=== PATIENT | female | born 1995 | race Caucasian/White ===

== ENCOUNTER → 2019-07-09 08:45 | Outpatient (BNVA) | payer BC, SELFPAY | PROVIDERS: Visit Provider Psychiatry & Neurology Psychiatry | DX: F33.1 Major depressive disorder, recurrent, moderate (principal); F41.1 Generalized anxiety disorder; F43.9 Reaction to severe stress, unspecified | CPT/HCPCS: 99204 ==

== ENCOUNTER → 2019-07-28 08:41 | Outpatient (BNVA) | payer BC, SELFPAY | PROVIDERS: Visit Provider Counselor Professional | DX: F41.1 Generalized anxiety disorder (principal) | CPT/HCPCS: 90834 ==

== ENCOUNTER → 2019-08-18 09:40 | Outpatient (BNVA) | payer BC, SELFPAY | PROVIDERS: Visit Provider Psychiatry & Neurology Psychiatry | DX: F43.9 Reaction to severe stress, unspecified (principal); F41.1 Generalized anxiety disorder; F33.1 Major depressive disorder, recurrent, moderate | CPT/HCPCS: 99213 ==

== ENCOUNTER → 2019-09-14 08:03 | Outpatient (BNVA) | payer BC, SELFPAY | PROVIDERS: Visit Provider Psychiatry & Neurology Psychiatry | DX: F43.9 Reaction to severe stress, unspecified (principal); F41.1 Generalized anxiety disorder; F33.1 Major depressive disorder, recurrent, moderate | CPT/HCPCS: 99213 ==

== ENCOUNTER → 2019-12-06 11:19 | Outpatient (BNVA) | payer BC, SELFPAY | PROVIDERS: Visit Provider Nurse Practitioner Family | DX: Z34.90 Encounter for supervision of normal pregnancy, unspecified, unspecified trimester (principal); Z3A.01 Less than 8 weeks gestation of pregnancy | CPT/HCPCS: 81025 ==

== ENCOUNTER 2019-12-07 10:21 | Outpatient (CLI) | payer BC, SELFPAY | END 2019-12-07 10:22 | disposition home or self-care (01) | LOC: LAB 10:29 | PROVIDERS: Family Provider Family Medicine; PCP Family Medicine; Referring Provider Obstetrics & Gynecology Reproductive Endocrinology; Visit Provider Family Medicine | DX: Z32.00 Encounter for pregnancy test, result unknown (principal) | CPT/HCPCS: 84702 ==

== ENCOUNTER 2019-12-09 08:37 | Outpatient (CLI) | payer BC, SELFPAY | END 2019-12-09 08:38 | disposition home or self-care (01) | PROVIDERS: PCP Family Medicine; Visit Provider Obstetrics & Gynecology Reproductive Endocrinology | DX: Z32.01 Encounter for pregnancy test, result positive (principal) | CPT/HCPCS: 84702 ==

== ENCOUNTER → 2020-03-01 14:55 | Outpatient (BNVA) | payer BC, MEDICAID, SELFPAY | PROVIDERS: PCP Family Medicine; Visit Provider Nurse Practitioner | DX: Z34.90 Encounter for supervision of normal pregnancy, unspecified, unspecified trimester (principal); B34.9 Viral infection, unspecified | CPT/HCPCS: 81000; 87635 ==

== ENCOUNTER 2020-03-31 10:43 | Outpatient (CLI) | payer BC, MEDICAID, SELFPAY ==
--- NOTE | 2020-03-31 10:55 | US_ITS ---
WS: [id number] OBSTETRICAL ULTRASOUND COMPLETE HISTORY: ANATOMY COMPARISON: None available. Single intrauterine gestation in breech presentation. Cervix is Closed and normal length. Cervical length is 4.6 cm. Normal amount of amniotic fluid surrounds the fetus. Placenta: Anterior, no previa or abruption. Placenta grade 1 Heart: 133 BPM. 4 chambers are identified. Normal situs. Outflow chambers are not identified. Anatomy: Intracranial structures and spine are normal. kidneys, stomach and urinary bladd er are unremarkable. Abdominal wall, three-vessel cord and cord insertion site are normal. 4 extremities are present. profile: Limited. Gender: Female. measurements: BPD = 4.9 cm = 20w5d HC = 18.0 cm = 20w3d AC = 15.5 cm = 20w4d FL = 3.3 cm = 20w2d EFW: 357 g. Biometry is internally concordant. AGA by ultrasound: 20w3d PAULY by ultrasound: 08/15/2020 US/US OB >= 14 weeks fetus [id number] IMPRESSION: 1. Single intrauterine gestation of 20w3d with an PAULY of 08/15/2020. 2. RIGHT and LEFT outflow chambers are poorly visualized. Limited visualizatio n of the profile. The remaining anatomy is negative.
== END 2020-03-31 10:44 | disposition home or self-care (01) ==
LOC: RAD 10:48
PROVIDERS: PCP Family Medicine; Visit Provider Family Medicine
DX: Z36.89 Encounter for other specified antenatal screening (principal); Z3A.20 20 weeks gestation of pregnancy
CPT/HCPCS: 76805

== ENCOUNTER 2020-04-12 13:14 | Outpatient (CLI) | payer BC, MEDICAID, SELFPAY ==
--- NOTE | 2020-04-12 13:23 | US_ITS ---
WS: [id number] [place] [id number] REASON FOR EXAM: SUPERVISION NORMAL FINDINGS: Follow-up ultrasound to reevaluate facial profile and right and left ventricular outflow tract. A normal facial profile is identified without evidence of cleft lip or palate. Left and right ventricular outflow tracts are demonstrated and are within normal limits. US/[place] [id number] IMPRESSION: Normal ventricular outflow tracts and profile.
== END 2020-04-12 13:15 | disposition home or self-care (01) ==
LOC: US 13:17
PROVIDERS: PCP Family Medicine; Visit Provider Family Medicine
DX: Z34.00 Encounter for supervision of normal first pregnancy, unspecified trimester (principal)
CPT/HCPCS: 76816

== ENCOUNTER 2020-07-18 12:03 | Outpatient (CLI) | payer BC, MEDICAID, SELFPAY ==
--- NOTE | 2020-07-18 | US_ITS ---
WS: [id number] OBSTETRICAL ULTRASOUND HISTORY: SGA GALEN AND EFW REQUESTED COMPARISON: 04/12/2020 and 03/31/2020 Presentation: Cephalic. Cervix: Closed and normal length. Placenta: Anterior, no previa or abruption. Grade: 1 HEART: FHR of 144 BPM. measurements: BPD = 8.9 cm = 35w6d HC = 31.8 cm = 35w5d AC = 33.1 cm = 37w0d FL = 7.0 cm = 35w6d GALEN: 18.7 cm EFW: 2948 g; 76 %. AGA by ultrasound: 36w1d PAULY by ultrasound: 08/14/2020 Appropriate growth of fetus since the first trimester ultrasound. Biometry is concordant. US/US OB limited [id number] IMPRESSION: 1. Single intrauterine gestation of 36 weeks 1 day with an EDC of 08/14/2020. 2. No evidence for small for gestational age. Normal growth since 03/31/2020. 3. Normal amniotic fluid index.
== END 2020-07-18 12:04 | disposition home or self-care (01) ==
PROVIDERS: PCP Family Medicine; Visit Provider Family Medicine
DX: Z36.4 Encounter for antenatal screening for fetal growth retardation (principal); Z3A.36 36 weeks gestation of pregnancy
CPT/HCPCS: 76815

== ENCOUNTER 2020-07-24 11:20 | Outpatient (CLI) | payer BC, MEDICAID, SELFPAY ==
[2020-07-24 11:38] VITALS: BMI 35.9
[2020-07-24 11:42] VITALS: BP 131/79; PULSE 107
[2020-07-24 12:09] LABS: Nitrazine Paper, PH Inconclusive
[2020-07-24 12:14] LABS: Actim Prom Negative
[2020-07-24 12:32] VITALS: BP 108/67; PULSE 80; TEMP 36.4
== END 2020-07-24 12:35 | disposition home or self-care (01) ==
LOC: OPOB 11:25 → OBGYN 12:27
PROVIDERS: PCP Family Medicine; Visit Provider Family Medicine
DX: O26.899 Other specified pregnancy related conditions, unspecified trimester (principal); Z3A.00 Weeks of gestation of pregnancy not specified; N89.8 Other specified noninflammatory disorders of vagina
CPT/HCPCS: 83986; 84112; 99211

== ENCOUNTER 2020-08-18 01:57 | Inpatient (IN) | payer BC, MEDICAID, SELFPAY ==
[2020-08-18] VITALS (83 sets, daily range): BP systolic 95–142; BP diastolic 50–84; PULSE 67–162; RESP 18; TEMP 36.2–36.9; O2SAT 91–98; BMI 36.9
[2020-08-18 01:25] LABS: Nitrazine Paper, PH Inconclusive
[2020-08-18 01:38] LABS: Actim Prom Positive
[2020-08-18 02:46] LABS: Basophils % 0.4 %; Eosinophils # 0.1 10^3/uL (0.0-0.8); Eosinophils % 1.1 %; Hematocrit 36.6 % (37.0-47.0); Hemoglobin 12.7 g/dL (11.5-15.3); Lymphocytes # 2.1 10^3/uL (0.8-4.8); Lymphocytes % 20.1 %; Mean Corpuscular HGB Conc 34.7 g/dL (30.0-36.0); Mean Corpuscular Hemoglobin 30.7 pg (28.0-34.0); Mean Corpuscular Volume 88.4 fL (81-99); Mean Platelet Volume 11.9 fL (7.4-10.4); Monocytes # 0.8 10^3/uL (0.2-0.9); Monocytes % 7.8 %; Neutrophils # 7.33 10^3/uL (1.8-7.7); Nucleated Red Blood Cells % 0 %; Platelet Count 230 10^3/cmm (130-400); Red Blood Count 4.14 10^6/uL (4.1-5.3); Red Cell Distribution Width 12.9 % (12.1-15.1); White Blood Count 10.5 10^3/uL (4.0-10.0)
[2020-08-18] MEDS: ondansetron 2 mg/ML SDV 2 mL 4 MG IVP ×2 (02:50→11:24)
[2020-08-18] MEDS: dextrose 5%-lactated ringers 1,000 ML 125 ML IV ×2 (02:50→13:19)
[2020-08-18] MEDS: butorphanol 2 mg/mL SDV 1 mL 1 MG IVP (03:13)
[2020-08-18 04:19] LABS: Amphetamines Screen Urine Negative (Negative); Barbiturates Screen Urine Negative (Negative); Benzodiazepines Screen Urine Negative (Negative); Cocaine Screen Urine Negative (Negative); Opiate Screen Urine Negative (Negative); PCP Screen Urine Negative (Negative); THC Screen Urine Positive (Negative)
[2020-08-18] MEDS: lactated ringers 1,000 ML 999 ML IV ×3 (05:33→13:40)
--- NOTE | 2020-08-18 06:54 | P.ANESASSM_ITS ---
Pre-Anesthetic Assessment Pre-Anesthetic Assessment: Height/Weight: Height 1.52 m Weight 85.729 kg Temp Pulse Resp BP Pulse Ox 97.9 F 94 18 117/73 94 08/18/20 06:24 08/18/20 06:52 08/18/20 02:34 08/18/20 06:49 08/18/20 06:52 Social: Social History: No alcohol and No tobacco History/ROS: No significant history except as noted and No significant complaints Anesthetic Plan: ASA status: 2 Anesthesia: Anesthesia Evaluation and Regional (specify below) Other: labor epidural Risk of > 500 ml blood loss (7ml/kg in children): No Meds/Allergies Current Medications: Current Medications Generic Name Dose Route Start Last Admin Trade Name Freq PRN Reason Stop Dose Admin Butorphanol Tartra te 1 mg 08/18/20 02:33 08/18/20 03:13 Butorphanol 2 Mg /Ml Sdv 1 Ml IVP 1 mg Q2H PRN Administration SEVERE PAIN Dextrose/Lactated Ringer's 1,000 mls @ 125 m ls/hr 08/18/20 02:45 08/18/20 02:50 Dextrose 5%-Lact ated Ringers IV 125 mls/hr .Q8H RACHNA Administration Ondansetron HCl 4 mg 08/18/20 02:33 08/18/20 02:50 Ondansetron 2 Mg /Ml Sdv 2 Ml IVP 4 mg Q4H PRN Administration NAUSEA AND VOMITI NG PFSH Anesthesia PFSH: Social History Smoking and tobacco status: former smoker Second hand smoke exposure: No Smoking risk assessment/counseling performed?: Yes Tobacco counseling given: counseling >3 minutes Female Reproductive History: : 1 Data Anesthesia CBC & Chem 7: 08/18/20 02:34 Other Labs: Laboratory Results - last 48 hr 08/18/20 08/18/20 08/18/20 01:28 02:34 03:23 WBC 10.5 H RBC 4.14 Hgb 12.7 Hct 36.6 L MCV 88.4 MCH 30.7 MCHC 34.7 RDW 12.9 Plt Count 230 MPV 11.9 H Neut % (Auto) 70.0 Lymph % (Auto) 20.1 Shannon % (Auto) 7.8 Eos % (Auto) 1.1 Baso % (Auto) 0.4 Neut # (Auto) 7.33 Lymph # (Auto) 2.1 Shannon # (Auto) 0.8 Eos # (Auto) 0.1 Baso # (Auto) 0.0 Nucleated RBC % (auto) 0 Nucleated RBCs # 0.0 Insulin-like GF I Positive Urine Opiates Screen Negative Ur Barbiturates Screen Negative Ur Phencyclidine Scrn Negative Ur Amphetamines Screen Negative U Benzodiazepines Scrn Negative Urine Cocaine Screen Negative U Marijuana (THC) Screen Positive H Cardiac Studies: No Data to Display Anesthesia Procedures Date of Procedure: 08/18/20 Procedure Narrative: labor epidural Epidural: Time Out Performed: Yes Consents Signed: Procedure Consent Consent: from patient Lumbar Level: L2-L3 Epidural position: sitting Epidural procedure: sterile prep of area, 1% lidocaine to numb the area, 18 g needle, neg for paresthesia, test dose given, 1.5% xylocaine 1:200k epi (3 ml), L.U.D. no apparent complications and 0.2% Ropiavacaine @ mls/hr (13) Additional Comments: Lot [id number] exp 2021-03-02 Consent obtained. Sterile prep and drape. Positive loss of resistance, cath advanced easily. Neg test dose. Good pain relief noted. Pt tolerated well.
--- NOTE | 2020-08-18 08:14 | PM.HP ---
Providers/Chief Complaint Admitting Physician: Curt Savage MD Primary Care Provider: Aracelis Ingram MD Chief Complaint: psom History of Present Illness Raeann Hoyos is a 25 year old at 40.3 weeks gestation by intrauterine insemination date consistent with first trimester ultrasound in [place]. Her is complicated by IUI due to infertility, THC use, depression off of meds, mild anemia during , Covid positive on 05/14/2020. The patient was in bed on the evening of 08/17/2020 when at approximately 12:30 AM on 08/18/2020 she felt a pop and a gush of fluid. She presented to labor and delivery and the nitrazine was indeterminant, so an active problem test was done that was positive. The patient was laboring on her own and stephanie every 3 to 5 minutes. For this reason she was kept for spontaneous labor. The patient was 1 cm upon presentation. Patient is made change on her own and was 6 cm at last check. The patient has not needed IV Pitocin for augmentation at this time. She is GBS negative. Currently she is afebrile. Patient denies any chest pains, shortness of breath, vomiting, diarrhea, constipation, dysuria. She has had some nausea. Medications/Allergies Home Medications Medication Instructions Recorded Confirmed Last Taken Type ltnjtodw-fae-[id number]-FA 1 tab PO DAILY 08/18/20 08/18/20 08/17/20 History [ 1] 0800 Allergies Allergy/AdvReac Type Severity Reaction Status Date / Time No Known Allergies Allergy Verified 07/24/20 11:40 PFSH Acute PFSH: Surgical History (Updated 08/18/20 @ 08:21 by Curt Savage MD) History of hip surgery Social History Smoking and tobacco status: former smoker Second hand smoke exposure: No Smoking risk assessment/counseling performed?: Yes Tobacco counseling given: counseling >3 minutes Female Reproductive History: : 1 Vitals/I&O/Wt Last Vital Signs Temp 97.9 F 08/18/20 07:10 Pulse 92 08/18/20 08:00 Resp 18 08/18/20 02:34 BP 111/61 08/18/20 08:00 Pulse Ox 95 08/18/20 07:41 08/17/20 08/18/20 08/18/20 22:59 06:59 14:59 Intake Total 333.333 / 333.333 Balance 333.333 / 333.333 Weight last 48 hrs Weight 189 lb Physical Exam Narrative: EXAM NARRATIVE: General: Alert and oriented x3 Eyes: Pupils equal round and reactive to light and accommodation Mouth: Mucous membranes moist, pharynx non-erythematous Cardiac: Regular rate and rhythm without murmurs Lungs: Clear to auscultation bilaterally without wheezes, crackles or rhonchi Abdomen: Soft, non-tender, fundus consistent with gestational age Extremities: Trace edema in the bilateral lower extremities Urinary Catheter Management^: Horne: Cath Placed During This Visit: yes Urinary Catheter Date of Insertion: 08/18/20 Urinary Catheter Time of Insertion: 07:30 Data : 08/18/20 02:34 A&P Additional A&P Information The patient is doing well at this time. Currently there is a category 1 heart tracing. She has received a laboring epidural. She is comfortable after this. She is currently 6 cm dilated. We will continue with routine management of labor. The patient's temperature is normal. No signs of infection. GBS is negative. The patient's drug screen was positive for THC. The infant will need to have a urine and meconium drug screen done after delivery. All questions were answered. Continue with routine care at this time. Attestations Medical Necessity Statement*: Patient will be here for greater than 2 midnights due to routine intrapartum and management of labor and delivery. Coding Level of Care Code Acute Acute Dialysis Registered Nurse for Laura Vega
[2020-08-18] MEDS: alum-mag-hydroxide-sime 30 mL UDC PO (08:18)
[2020-08-18] MEDS: calcium carbonate 500 mg Chew Tablet PO (11:08)
[2020-08-18] MEDS: oxytocin 30 UNIT/500 ML BAG 600 UNIT IV (14:08)
--- NOTE | 2020-08-18 14:24 | PM.DELIVERY ---
Delivery Note: Date of delivery: August 18, 2020 Pre-delivery diagnoses: 1. Intrauterine at 40.3 weeks gestation 2. IUI 3. THC positive on urine drug screen 4. Depression 5. Covid positive on 05/14/2020 Post-delivery diagnoses: 1. Intrauterine status post spontaneous vaginal delivery at 40.3 weeks gestation 2. IUI 3. THC positive on urine drug screen 4. Depression 5. Covid positive on 05/14/2020 6. Delivery of healthy female weighing 7 pounds 7 ounces with Apgars of 8 and 9 Procedure: Spontaneous vaginal delivery Op report anesthesia: Epidural Estimated blood loss (mL): 150 Findings: Raeann Hoyos is a 25 year old G1 now P1 status post spontaneous vaginal delivery at 40.3 weeks gestation by intrauterine insemination date consistent with first trimester ultrasound in [place]. Her was complicated by IUI due to infertility, THC use, depression off of meds, mild anemia during , Covid positive on 05/14/2020. 1. Healthy infant female weighing 7 pounds 7 ounces with Apgars of 8 and 9 2. Intact placenta with central umbilical cord insertion site Pre-Delivery Course: The patient presented to labor and delivery triage on the morning of 08/18/2020 due to concern for rupture of membranes at home at 12:30 AM on 08/18/2020. The patient's nitrazine test was found to be indeterminate and an actiprom was positive. The patient was admitted for further monitoring and was having contractions. The patient started making change on her own. She was 1 cm upon presentation and made steady change without any Pitocin for augmentation. The patient continued to make change and received a laboring epidural. The epidural worked well for her. The patient progressed well and was complete by 1308 on 08/18/2020. Delivery: The patient began pushing at 1331 on 08/18/2020. There were some early decelerations with pushing and a fluid bolus was given. The decelerations were consistent with a nuchal cord. There was descent recovery in between pushes. The patient pushed well and the delivered in the OA position at 1401 on 08/18/2020. There was a nuchal cord x2 but it was tight and after on the infant's arm, so it could not be reduced. For this reason the was delivered through the cord. The right shoulder was the anterior shoulder and initially did not deliver with downward pressure, so the left shoulder delivered with slight upward pressure. The right shoulder then delivered with ease. There was no dystocia. The rest of the delivered with ease. The infant's mouth and nose were bulb suctioned by myself and the began to cry shortly after . The infant had a nuchal cord x2 that was also wrapped around the body under the left arm. The infant was placed on the mother's chest where the nurses were waiting to care for her. The cord was clamped by myself after approximately 1 minute and 30 seconds and cut by the 's father. Cord blood was obtained. Traction was placed on the cord and the placenta delivered without complication at 1406 on 08/18/2020. The placenta was noted to be intact with a central umbilical cord insertion site. The cervix was inspected and no lacerations were noted. The vaginal wall was inspected and there were bilateral abrasions on the vaginal wall without any that were significantly bleeding. No suturing was needed. Fundal massage was done and the patient was noted to have mild bleeding. Currently the patient and are doing well. Coding Level of Care Code Acute Spa Associate for Laura Vega
[2020-08-18] MEDS: ibuprofen 800 mg tablet PO ×2 (16:01→21:05)
[2020-08-18] MEDS: benzocaine-menthol 78 gm Canister 1 SPRAY TOPICAL (16:15)
[2020-08-18] MEDS: lanolin oint 7 gm 1 APPLIC TOPICAL (16:16)
--- NOTE | 2020-08-18 16:51 | PC.NURSE ---
pt up to bathroom, void 300mL, magdaleno care discussed. gown changed. pt back to bed, declined further needs
--- NOTE | 2020-08-18 20:50 | PC.NURSE ---
moved to room [id number]
[2020-08-19] VITALS: BP 99/62; PULSE 77; RESP 18; TEMP 36.8; O2SAT 97
[2020-08-19] MEDS: acetaminophen 325 mg Tablet 650 MG PO ×2 (02:55→13:08)
[2020-08-19 03:00] LABS: Hematocrit 31.8 % (37.0-47.0); Hemoglobin 10.5 g/dL (11.5-15.3); Mean Corpuscular Hemoglobin 29.7 pg (28.0-34.0); Mean Corpuscular Volume 90.1 fL (81-99); Mean Platelet Volume 11.6 fL (7.4-10.4); Platelet Count 176 10^3/cmm (130-400); Red Blood Count 3.53 10^6/uL (4.1-5.3); Red Cell Distribution Width 13.2 % (12.1-15.1); White Blood Count 15.1 10^3/uL (4.0-10.0)
[2020-08-19 04:06] VITALS: BP 105/64; PULSE 75; RESP 17; TEMP 36.6; O2SAT 97
[2020-08-19] MEDS: prenatal vitamin Capsule 1 CAP PO (08:09)
[2020-08-19] MEDS: ibuprofen 800 mg tablet PO ×2 (08:09→15:57)
[2020-08-19] MEDS: docusate sodium 100 mg Capsule PO (08:09)
[2020-08-19 10:04] VITALS: BP 107/70; PULSE 76; RESP 16; TEMP 36.6
--- NOTE | 2020-08-19 14:36 | P.DS_ITS ---
Discharge Providers Date of Admission: 08/18/20 01:57 Date of Discharge: August 19, 2020 Attending Provider at Admission: Curt Savage MD Attending Provider at Discharge: Curt Savage MD Primary Care Provider: Aracelis Ingram MD Diagnoses at Discharge Other Information Additional DC diagnoses/information: 1. Intrauterine status post spontaneous vaginal delivery at 40.3 weeks gestation 2. IUI 3. THC positive on urine drug screen 4. Depression 5. Covid positive on 05/14/2020 6. Delivery of healthy female weighing 7 pounds 7 ounces with Apgars of 8 and 9 Reason for Visit Reason for Visit: [facility] Hospital Course Hospital Course Pre-Delivery Course: The patient presented to labor and delivery triage on the morning of 08/18/2020 due to concern for rupture of membranes at home at 12:30 AM on 08/18/2020. The patient's nitrazine test was found to be indeterminate and an actiprom was positive. The patient was admitted for further monitoring and was having contractions. The patient started making change on her own. She was 1 cm upon presentation and made steady change without any Pitocin for augmentation. The patient continued to make change and received a laboring epidural. The epidural worked well for her. The patient progressed well and was complete by 1308 on 08/18/2020. Delivery: The patient began pushing at 1331 on 08/18/2020. There were some early decelerations with pushing and a fluid bolus was given. The decelerations were consistent with a nuchal cord. There was descent recovery in between pushes. The patient pushed well and the infant delivered in the OA position at 1401 on 08/18/2020. There was a nuchal cord x2 but it was tight and after on the 's arm, so it could not be reduced. For this reason the infant was delivered through the cord. The right shoulder was the anterior shoulder and initially did not deliver with downward pressure, so the left shoulder delivered with slight upward pressure. The right shoulder then delivered with ease. There was no dystocia. The rest of the infant delivered with ease. The infant's mouth and nose were bulb suctioned by myself and the began to cry shortly after . The had a nuchal cord x2 that was also wrapped around the body under the left arm. The infant was placed on the mother's chest where the nurses were waiting to care for her. The cord was clamped by myself after approximately 1 minute and 30 seconds and cut by the 's father. Cord blood was obtained. Traction was placed on the cord and the placenta delivered without complication at 1406 on 08/18/2020. The placenta was noted to be intact with a central umbilical cord insertion site. The cervix was inspected and no lacerations were noted. The vaginal wall was inspected and there were bilateral abrasions on the vaginal wall without any that were significantly bleeding. No suturing was needed. Fundal massage was done and the patient was noted to have mild bleeding. Currently the patient and infant are doing well. Postdelivery course: The patient has done very well without any signs of significant complications. Her bleeding is decreasing well. Her pain is well controlled. She is ambulating, voiding, passing gas and tolerating food by mouth. She is breast-feeding. Routine discharge instructions were discussed. All questions were answered. Plan for follow-up at 6 weeks or sooner if needed. Physical Exam Narrative: EXAM NARRATIVE: General: Alert and oriented x3 Cardiac: Regular rate and rhythm without murmurs Lungs: Clear to auscultation bilaterally without wheezes, crackles or rhonchi Abdomen: Soft, nontender, no hepatosplenomegaly noted, uterus is firm and midlin e and 2 cm below the umbilicus. Extremities: No edema Urinary Catheter Management^: Horne: Cath Placed During This Visit: yes, but has since been removed by the nurse Reason for Continuing Indwelling Catheter: Decision to DC Catheter Urinary Catheter Date of Insertion: 08/18/20 Urinary Catheter Time of Insertion: 07:30 Date Urinary Catheter Removed: 08/18/20 Time Urinary Catheter Discontinued: 13:30 Discharge Data Data Completed and Pending: Labs from last 24 hours 08/19/20 02:40 WBC 15.1 H RBC 3.53 L Hgb 10.5 L Hct 31.8 L MCV 90.1 MCH 29.7 MCHC 33.0 RDW 13.2 Plt Count 176 MPV 11.6 H Vitals: Last Vital Signs Temp 97.8 F 08/19/20 10:04 Pulse 76 08/19/20 10:04 Resp 16 08/19/20 10:04 BP 107/70 08/19/20 10:04 Pulse Ox 97 08/19/20 04:06 Discharge Plan Discharge Patient Disposition: Home Condition: Good Prescriptions: New ibuprofen 800 mg Tablet 800 mg PO TID Qty: 60 RF: 0 ferrous sulfate 325 mg (65 mg iron) tablet 325 mg PO BID 15 Days Qty: 30 RF: 0 Continued 1 1 mg Tablet 1 tab PO DAILY RF: 0 Discharge Orders: Discharge Order (Routine); Ordered 08/19/20 Ordered By: Curt Savage Referrals: Curt Savage MD [Physician] - 08/23/20 1:00 pm (Your post- appointment and baby's 4-7 day checkup is scheduled for 08/23/20 at 1:[address] Savage.) Discharge Diet: Advance as tolerated Discharge Activity: Limit activity as instructed Patient Instructions: Vitamins (By mouth), Your Baby (DC), Pre-eclampsia and Eclampsia (GEN), Bleeding (GEN), OB Discharge Report, OB Food/Drug Interaction Guide, OB Proud Parent Packet, OB Vaginal Deliveries, Abnormal Bleeding Activity Restrictions/Additional Instructions: Nothing per vagina for 6 weeks Discharge Attestations Time Spent in Discharge Care*: greater than 30 min Specific Discharge Activities: educating patient and documenting/other paperwork Quality Metrics Clinical Quality Measures During this hospital stay, did patient experience: None Coding Level of Care Code Acute Chg FW DC note
[2020-08-19 15:46] VITALS: BP 102/68; PULSE 89; RESP 16; TEMP 36.7
[2020-08-19 16:24] VITALS: BP 102/68; PULSE 89; RESP 16; TEMP 36.7
== END 2020-08-19 16:50 | disposition home or self-care (01) | DRG 806 ==
LOC: OPOB 01:58 → OBGYN 01:58
PROVIDERS: Admitting Provider Family Medicine; Visit Provider Family Medicine
DX: O76 Abnormality in fetal heart rate and rhythm complicating labor and delivery (principal); O99.324 Drug use complicating childbirth; Z37.0 Single live birth; Z3A.40 40 weeks gestation of pregnancy; F12.90 Cannabis use, unspecified, uncomplicated; O99.344 Other mental disorders complicating childbirth; F32.9 Major depressive disorder, single episode, unspecified; O99.02 Anemia complicating childbirth; D64.9 Anemia, unspecified; O69.2XX0 Labor and delivery complicated by other cord entanglement, with compression, not applicable or unspecified; Z87.891 Personal history of nicotine dependence; Z86.16 Personal history of COVID-19
CPT/HCPCS: 36415; 51702; 59025; 59409; 80306; 83986; 84112; 85025; 85027; 98960; 99211; J0595; J2405; J2795